=== PATIENT | female | born 1980 | race African-American/Black ===

== ENCOUNTER 2024-11-26 12:46 | Emergency (ER) | payer MEDICAID ==
[~2024-11-26] VITALS: Ht 170.2 cm; Wt 77.0 kg
[2024-11-26 12:51] VITALS: O2SAT 100
[2024-11-26] MEDS ORDERED: IBUP-2029 MT (14:10)
[2024-11-26] MEDS ORDERED: METH-653 MT (14:10)
[2024-11-26] MEDS: KETOROLAC 30MG/ML VIAL IM ONE (14:46)
[2024-11-26] MEDS: METHOCARBAMOL 500MG TABLET PO ONE (14:46)
[2024-11-26 14:50] VITALS: BP 114/73; PULSE 104; RESP 17; TEMP 36.8; O2SAT 100
== END 2024-11-26 14:51 | disposition home or self-care (01) ==
LOC: ER 12:46
DX: S29.012A Strain of muscle and tendon of back wall of thorax, initial encounter (principal); Z98.890 Other specified postprocedural states; V43.52XA Car driver injured in collision with other type car in traffic accident, initial encounter; Y93.89 Activity, other specified; Y92.89 Other specified places as the place of occurrence of the external cause; Y99.8 Other external cause status
CPT/HCPCS: 96372; 99283; J1885; Z7610